=== PATIENT | male | born 1945 | race Caucasian/White ===

== ENCOUNTER 2016-10-21 04:21 | Inpatient (IN) | payer MEDICARE, BC ==
--- NOTE | ~2016-10-21 | HP ---
Unit #: [id number] #: [id number] Patient: NORA FORD [id number] [address] [address] [id number] I MR#: [id number] NAME: NORA FORD ROOM: [facility] Age: 70 Sex: M Admission Date: 10/21/2016 : 1945 Attending Physician: Carmen Matt M.D. HISTORY AND PHYSICAL ADDENDUM DIAGNOSTIC DATA LABORATORY: Last night's workup showed sodium 134, potassium 4.4, chloride 95, BUN 26, creatinine 1.27, lactic acid 2.9, white blood cell count 15.7, hemoglobin 15, platelets 153. Urinalysis showed 5-10 WBCs, 2+ bacteria. Strep screen negative for group B strep. Influenza rapid negative. Dictated by Brit Washington/yrn TD: 10/21/2016 11:05 JOB #: [id number] HISTORY AND PHYSICAL Page 1 of 1 X X HISTORY AND PHYSICAL
--- NOTE | ~2016-10-21 | US84 ---
[id number] [facility] [address] [place], [place] [address] [id number] I MR#: [id number] Acc #: [id number] NAME: NORA FORD : 1945 SEX: M STUDY DATE/TIME: 10/22/2016 18:11 UNIT: C4 ROOM: [facility] STUDY DESCRIPTION: US LE Veins Complete Sotero Stdy Attending Physician: Cristino Vigil M.D. Ordering Physician: Cristino Vigil M.D. MEDICAL IMAGING REPORT This report is preliminary unless electronic signature is present EXAM Bilateral lower extremity venous Doppler HISTORY 70-year-old male bilateral lower extremity swelling times 6 months. History of shortness of air x2 months. Patient diabetic with neuropathy. FINDINGS 2-D and Doppler evaluation of the lower extremity demonstrates normal flow and compressibility of the major veins of both lower extremities. No intraluminal thrombus identified. Normal respiratory variation. Normal augmentation. There is an enlarged hyperemic left inguinal lymph node measuring up to 4 cm. This may be reactive due to a left groin cellulitis. By report the patient has redness and visualized infection in the left groin. IMPRESSION 1. No sonographic evidence of DVT or superficial venous thrombosis. 2. Enlarged hypervascular left inguinal lymph node may represent a reactive lymph node. By report the patient has evidence of a left groin pain cellulitis and/or infection. Dictated by... Rosy Menjivar M.D. THIS IS AN ELECTRONICALLY VERIFIED REPORT Rosy Menjivar M.D. at 10/23/2016 8:09 PM ROSS/giorgio TD: 10/23/2016 05:41 JOB #: [id number] MEDICAL IMAGING REPORT Page 1 of 1 COPY
--- NOTE | ~2016-10-21 | CO ---
Unit #: [id number] #: [id number] Patient: NORA FORD [id number] [place] [address] [facility]. [place], [place] [address] [id number] I MR#: [id number] NAME: NORA FORD ROOM: 470 Age: 70 Sex: M Admission Date: 10/21/2016 : 1945 Attending Physician: Cristino Vigil M.D. CONSULTATION REPORT HISTORY OF PRESENT ILLNESS This is a 70-year-old white male, who is known to Dr. Nolasco, who has a history of hypertension, hyperlipidemia, and chronic dependent edema. The patient had an echocardiogram in 2014, which showed normal left ventricular ejection fraction with diastolic dysfunction. He denies a history of any cardiac testing with heart catheterization or stress test. The patient is admitted to [facility] with fever and chills. While there, the patient's blood pressure dropped down as lower as 40 systolically. He was treated with IV fluids and subsequently transferred to the intensive care unit at [facility]. His blood pressure improved with IV fluids. 2D echocardiogram was obtained, which found the patient to have an ejection fraction of 30% to 35%. No suspected endocarditis, but there was no evidence of vegetation. Blood cultures at this facility was normal, however, there was gram-positive cocci in chain and one of 2 blood cultures at [facility]. The patient has no symptoms of angina. He has dyspnea when he walks on elevation. No dyspnea on walking on a flat surface. He has persistent lower extremity edema where the left lower extremity is worse than the right. He denies paroxysmal nocturnal dyspnea, orthopnea, or palpitations. There was elevation of creatinine of 1.9 on admission with questionable chronic kidney disease. Upon further questioning, the patient states he has several loose teeth. He has not seen a dentist in years. He reports no toothaches. His white count is elevated at 20.5 on admission, but he has been started on antibiotics intravenously. PAST MEDICAL HISTORY 1. 2D echocardiogram on 11/15/2014 shows ejection fraction of 60% to 65% with impaired left ventricular relaxation. Done at [facility] office. 2. 2D echocardiogram on 10/21/2016 at this facility shows ejection fraction of 30% to 35% with trace tricuspid regurgitation. 3. Hypertension. 4. Hyperlipidemia. 5. Chronic lower extremity edema. 6. Diabetes mellitus, type 2. 7. Obstructive sleep apnea, wears CPAP. 8. Morbid obesity. 9. GERD. 10. Poor dentition. 11. Former smoker. PAST SURGICAL HISTORY Unit #: [id number] #: [id number] Patient: NORA FORD 1. Circumcision. 2. Appendectomy. 3. Ureteroscopy. 4. 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 SOCIAL HISTORY The patient lives in [place], [place]. He is and not employed. He quit smoking approximately 5 to 6 years ago, but previously smoked heavily of 2 packs of cigarettes daily. Quit drinking heavily several years ago. Denies illicit drug use. FAMILY HISTORY Mother from a myocardial infarction at age 59. ALLERGIES Amoxicillin and Celebrex. HOME MEDICATIONS Lipitor 40 mg q.h.s., carvedilol 6.25 mg b.i.d., methocarbamol 500 mg q.6 hours p.r.n., Neurontin 600 mg t.i.d., metformin 500 mg b.i.d., Protonix 40 mg daily, Cozaar 100 mg daily. REVIEW OF SYSTEMS CONSTITUTIONAL: Positive for recent fever and chills. Has no weight gain or weight loss. HEENT: No headache. No vision changes. No difficulty with swallowing. Negative for dizziness. CARDIOVASCULAR: Has no symptoms of angina. Denies palpitations. No paroxysmal nocturnal dyspnea or orthopnea. Denies syncope or near syncope. RESPIRATORY: Positive for dyspnea on extreme exertion. No cough or hemoptysis. GASTROINTESTINAL: Denies abdominal pain, nausea, or vomiting. No constipation. No melena. EXTREMITIES: Positive for bilateral lower extremities. Right lower extremity with 1+ edema. Left lower extremity with 3+ edema. PHYSICAL EXAMINATION VITAL SIGNS: Blood pressure 116/52, heart rate 83, temperature 97.9. BMI 50. GENERAL: This is a morbidly obese 70-year-old pleasant white male, who is in no acute respiratory distress. NEUROLOGIC: He is awake, alert, and oriented. There are no focal weaknesses. NECK: Trachea is midline. No thyromegaly or lymphadenopathy. No jugular venous distention. HEART: S1 and S2. Heart sounds are normal. No murmurs. No rubs or clicks. Regular rate and rhythm. LUNGS: Diminished breath sounds throughout without rales, rhonchi, or wheezing. ABDOMEN: Soft and obese with bowel sounds are present. EXTREMITIES: With 3+ left lower extremity edema. 1+ in the right lower extremity. DIAGNOSTIC STUDIES LABORATORY RESULTS: Glucose 137, BUN 28, creatinine 1.6, sodium 137, potassium 4.4. Troponin less than 0.03. CK total 86, hemoglobin A1c 6.2. Lactic acid 1.8. Cholesterol 92, triglycerides 75, LDL 33, HDL 44. White count 14.5, hemoglobin 13.3, hematocrit 40.6, platelet count 113. Unit #: [id number] #: [id number] Patient: NORA FORD IMAGING STUDIES: Chest x-ray shows stable cardiomegaly. CARDIOVASCULAR STUDIES: EKG, normal sinus rhythm with rate of 71 beats per minute, otherwise normal. IMPRESSION 1. Sepsis. 2. Cardiomyopathy with ejection fraction of 30% to 35%. 3. Hypotension. 4. History of hypertension. 5. Hyperlipidemia. 6. Diabetes mellitus type 2. 7. Obstructive sleep apnea. 8. Lower extremity edema, rule out deep vein thrombosis. PLAN 1. Cardiology was consulted for cardiomyopathy. The patient's ejection fraction is low compared to the previous in 2015. The patient is already on ARB and beta-darren. 2. Because of hypotension, we will decrease the dose of losartan and carvedilol. 3. No acute heart failure noted on examination. 4. Follow up with Dr. Nolasco at discharge. Thank you for allowing us to assist with this patient's care. Dictated by... Daily Doll/camille TD: 10/23/2016 01:10 JOB #: [id number] CC: Dax Nolasco M.D. CONSULTATION REPORT Page 1 of 1 X Prasanna Quinones APRN X CONSULTATION REPORT
--- NOTE | ~2016-10-21 | BMI ---
[facility] Nutrition Therapy DATE: 10/22/16 Patient: NORA LRJAMALLEONARDO Physician: [place] Address: [address] [facility] Room/Bed: [address] [place] [address], Zip: [place] [phone] Admit Date: 10/21/16 Date of : [birth year] Height: 5 11 Weight: 359 163 HIGH BMI NOTE: DX: 70 y/o male admitted for hypotension ANTHROPOMETRICS: Ht: 5'11" Wt: 163.2 kg (359#) BMI: 50.2 DIET: Consistent carb INTERVENTION: Consistent carb RECOMMENDATIONS: 1. Continue consistent carb diet to promote gradual weight loss towards healthy BMI RD will f/u per protocol. Respectfully, BULMARO VIRK, Marine Equipment Design Engineer Carmen Ruiz RD, LD Food and Nutritional Services [facility] cc: client file
--- NOTE | ~2016-10-21 | EKG ---
PATIENT: NORA FORD UNIT #: [id number] Ventricular Rate: 71 BPM Atrial Rate: 71 BPM P-R Interval: 176 ms QRS Duration: 86 ms Q-T Interval: 378 ms QTC Calculation(Bezet): 410 ms P Volborg: 67 degrees Calculated R Volborg: 29 degrees Calculated T Volborg: 55 degrees Diagnosis Line: Normal sinus rhythm Diagnosis Line: Normal ECG Diagnosis Line: No previous ECGs available Diagnosis Line: Confirmed by PINEDA DUPONT MD ([id number]) on 10/22/2016 Diagnosis Line: 9:36:05 AM INTERPRETING MD: KIAH AQUINO
--- NOTE | ~2016-10-21 | DS ---
Unit #: [id number] #: [id number] Patient: NORA FORD [id number] [address] [address] [id number] I MR#: [id number] NAME: NORA FORD ROOM: [facility] Age: 70 Sex: M Admission Date: 10/21/2016 : 1945 Discharge Date: 10/24/2016 Attending Physician: Ant Trimble M.D. DISCHARGE SUMMARY DISCHARGE DIAGNOSES Septic shock, chronic diastolic heart failure, type 2 diabetes, acute kidney injury, morbid obesity, and dental caries. HOSPITAL COURSE The patient is a 70-year-old male, who presented to [facility] with complaints of fevers and rigors. Apparently, they had been going on for approximately 24 hours. In the ED at that facility, the patient was noted to have a blood pressure of 75/25. He received fluid bolus and was started on pressors. The patient was [facility] and admitted to the ICU. The patient improved quickly with administration of IV antibiotics. Ultimately, blood cultures have grown group B strep. Repeat blood cultures are negative at this time. The presumed source of this infection is the patient's dental caries for which he had a dental appointment and pending extractions scheduled for the time he has been in this facility. The patient's blood pressure is normal, off pressors. He has been afebrile since admission here despite presenting with a temperature of a 102. Incidentally, the patient states that this kind of presentation is unremarkable for him and that he will occasionally get these fevers and rigors, but they typically resolve with a dose of Tylenol and do not return. At this time however after they failed to improve, his took him to the emergency department. Given resolution of symptoms and no further growth in blood cultures, the patient is being discharged home. DISCHARGE MEDICATIONS Neurontin 600 mg p.o. t.i.d., metformin 500 mg p.o. b.i.d., Coreg 6.25 mg p.o. b.i.d., Lipitor 40 mg p.o. in the evening, Cozaar 100 mg p.o. daily, pantoprazole 40 mg p.o. daily, methocarbamol 500 mg p.o. q.6 hours p.r.n., Omnicef 300 mg one p.o. b.i.d. for 11 more days. DISCHARGE INSTRUCTIONS I have discussed this extensively with the patient. He should reschedule with [facility] for extraction of his teeth as planned prior to this admission. Additionally given his chronic systolic heart failure, I have recommended he follow up with his child specialist as soon as possible. Additionally, he should see his primary care provider at the end of his antibiotic course. Unit #: [id number] #: [id number] Patient: NORA FORD Dictated by... Brit Nunez/camille TD: 10/25/2016 05:43 JOB #: [id number] DISCHARGE SUMMARY Page 1 of 1 X Ant Trimble MD X DISCHARGE SUMMARY
--- NOTE | ~2016-10-21 | HP ---
Unit #: [id number] #: [id number] Patient: NORA FORD [id number] [address] [address] [id number] I MR#: [id number] NAME: NORA FORD ROOM: [facility] Age: 70 Sex: M Admission Date: 10/21/2016 : 1945 Attending Physician: Carmen Matt M.D. HISTORY AND PHYSICAL CHIEF COMPLAINT Fever and chills, hypotension. HISTORY OF PRESENTING ILLNESS The patient is a 70-year-old man with a past medical history of morbid obesity, was initially evaluated at [facility] for fever and chills which started last night. He was noted to be hypotensive. He was started on dopamine drip, he was started on IV steroids. Initiated on sepsis protocol and transferred here for further care. The patient mentions that he is having fever with chills for the last one day. Denies any sick contacts. Complains of cough with clear sputum. Denies any burning sensation passing urine, increased frequency of urination. Denies having any diarrhea, dysuria. In the outlying facility, he was hypotensive, started on pressors and transferred here. PAST MEDICAL HISTORY 1. History of diet controlled diabetes. 2. History of osteomyelitis in the left fourth toe, status post amputation. 3. He mentions he had a cardiac condition in which he could not exactly explain. Possibly, from what he describes, congestive heart failure. He also has hyperlipidemia and neuropathy, sleep apnea. ALLERGIES Includes Celebrex. HOME MEDICATIONS 1. Lipitor 40 mg daily. 2. Vitamin C. 3. Aspirin 81 mg daily. 4. Coreg 6.25 mg twice a day. 5. Gabapentin 600 mg, one tab t.i.d. 6. Glucosamine. 7. Lisinopril 20 mg daily. 8. Metformin 500 mg, one tab b.i.d. SOCIAL HISTORY He mentions his brother had lung cancer. PAST SURGICAL HISTORY 1. 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 Unit #: [id number] #: [id number] Patient: NORA FORD 2. History of appendectomy. 3. Ureteroscopy. 4. Circumcision. REVIEW OF SYSTEMS A complete review of systems was done. Negative except for what is mentioned in the HPI. PHYSICAL EXAMINATION VITAL SIGNS: Temperature 97.6, pulse rate 74, respiratory rate 20, blood pressure 159/45. GENERAL: The patient is obese, alert, oriented x3, lying in the bed, in no acute distress. HEENT: Normocephalic, atraumatic. No icterus. PERRLA. Extraocular movements intact. NECK: Supple. No JVD. HEART: S1, S2. Regular rate and rhythm. CHEST: Bilateral equal air entry, clear to auscultation. ABDOMEN: Obese, soft, nontender. EXTREMITIES: Edema in both upper and lower extremities. Looks chronic in nature with skin changes. DIAGNOSTIC STUDIES Kindly note - we do not have any labs yet. We are trying to get stat labs at this point. ASSESSMENT AND PLAN 1. Sepsis with shock: Currently, he is on dopamine drip. The blood pressure is stabilizing. Will down titrate the dopamine drug and also taper his IV fluids as he also has a history of heart failure and he does have chronic edema. I don't want him to go get volume overloaded at this point. 2. History of diabetes mellitus: He is on metformin. I will hold it for now. Keep him on Accu-Cheks q. a.c. and q. h.s., insulin sliding scale. Keep him on diabetic healthy heart diet. 3. History of heart failure: Will check a 2D echo with Doppler. Will resume his blood pressure medications once his blood pressure is stable enough. 4. History of osteomyelitis in the lower extremities: Wounds look clean. Will monitor. 5. DVT precautions. 6. Further recommendations per hospital course. Dictated by Brit Washington TD: 10/21/2016 11:32 JOB #: [id number] Unit #: [id number] #: [id number] Patient: NORA FORD HISTORY AND PHYSICAL Page 1 of 1 X X HISTORY AND PHYSICAL
--- NOTE | ~2016-10-21 | CO ---
Unit #: [id number] #: [id number] Patient: NORA FORD [id number] [address] [address] [id number] I MR#: [id number] NAME: NORA FORD ROOM: [facility] Age: 70 Sex: M Admission Date: 10/21/2016 : 1945 Attending Physician: Cristino Vigil M.D. Consultation Date: 10/21/2016 CONSULTATION REPORT REASON FOR CONSULTATION Critical care management. CHIEF COMPLAINT Fever and hypertension. HISTORY OF PRESENT ILLNESS A 70-year-old male with a past medical history of morbid obesity, likely obstructive sleep apnea, diabetes mellitus, possible coronary artery disease, and dyslipidemia, presents with the complaint of fever and cough with increasing sputum production. He was found to be hypertensive and started on pressor and transferred here. I am seeing the patient at the bedside. He is complaining of some cough. He denies any nausea, vomiting, or diarrhea. PAST MEDICAL HISTORY As described above. PAST SURGICAL HISTORY 1. Amputation of the fourth toe of the foot on both sides. 2. Appendectomy. 3. Ureteroscopy. 4. Circumcision. ALLERGIES CELEBREX. HOME MEDICATIONS 1. Lipitor. 2. Vitamin C. 3. Aspirin. 4. Coreg. 5. Neurontin. 6. Glucosamine. 7. Lisinopril. 8. Metformin. SOCIAL HISTORY Lung cancer. PHYSICAL EXAMINATION VITAL SIGNS: Temperature 98, pulse 87, respirations 12, and blood pressure 130/70. NEUROLOGICAL: Awake, alert, and oriented, with no neurological deficits. Unit #: [id number] #: [id number] Patient: NORA FORD HEENT: Pupils equal, round, and reactive to light and accommodation. Extraocular movements are intact. NECK: Supple. No JVD. CHEST: Bilateral air entry, bilateral mild rhonchi. GASTROINTESTINAL: Nontender and soft. Bowel sounds positive. EXTREMITIES: No edema. SKIN: No rashes and no ulcers. LYMPHATICS: No lymphadenopathy. DIAGNOSTIC STUDIES LABORATORY: Creatinine is 1.9, BUN 29, and potassium is 4.8. Lactic acid is 1.8. White count is 20, hemoglobin 13, hematocrit 42, and platelet count is 134,000. IMAGING: Pending. ASSESSMENT 1. Septic shock. 2. History of heart failure. 3. History of osteomyelitis. PLAN Admit the patient. Will review the imaging. Continue oxygen and bronchodilator. Will order noncontrast CT of the chest as well. Follow cultures. Broad spectrum IV antibiotics, wean pressors, and stress-dose steroid. Please see orders for detailed plans. I would like to thank Dr. Vigil for his kind consideration to involve me in taking care of this patient. Will follow patient along with you very closely. Dictated by... Brit Boyer TD: 10/21/2016 21:40 JOB #: [id number] CONSULTATION REPORT Page 1 of 1 X Mildred Mason MD X CONSULTATION REPORT
--- NOTE | ~2016-10-21 | CR63 ---
[facility] A Service of [facility] RADIOLOGY TEXT RESULTS PATIENT: NORA FORD LOCATION: [facility] 470-01 : [birth year] UNIT #: [id number] AGE: [address]: Cristino Vigil MD SEX: M ORDER DR: [id number] [facility] [address] [facility]. [place], [place] [address] [id number] MR#: [id number] Acc #: [id number] NAME: NORA FORD : 1945 SEX: M STUDY DATE/TIME: 10/22/2016 12:10 UNIT: [facility] ROOM: [facility] STUDY DESCRIPTION: CR Chest 2 View Attending Physician: Cristino Vigil M.D. Ordering Physician: Mildred Mason M.D. MEDICAL IMAGING REPORT This report is preliminary unless electronic signature is present EXAM Chest 2 views, 10/22/2016 12:10 hours HISTORY 70-year-old man with 3-day history of shortness of air, fever and chills. COMPARISON Chest CT 10/21/2016 and chest x-ray 10/20/2016 FINDINGS Portable upright chest excludes the extreme lung apices. There is mild cardiomegaly, tortuous aorta unchanged. The lungs are well expanded. There is no definite acute pulmonary density or pleural effusion. A small density seen in the lingula and the lung bases on yesterday's CT scan are not detected on plain film. IMPRESSION The lungs are well inflated with no definite acute pulmonary densities. The vague density seen in the lingula independently at the lung bases on CT 10/21/2016 are not detected on plain film. No effusions are seen. Stable mild cardiomegaly. Dictated by... Nancy Harper M.D. THIS IS AN ELECTRONICALLY VERIFIED REPORT Nancy Harper M.D. at 10/22/2016 1:56 PM Selvin TD: 10/22/2016 13:11 JOB #: [id number] MEDICAL IMAGING REPORT [facility] A Service of [facility] RADIOLOGY TEXT RESULTS PATIENT: NORA FORD LOCATION: [place] [address]- : [birth year] UNIT #: [id number] AGE: [address]: Cristino Vigil MD SEX: M ORDER DR: Page 1 of 1 COPY
[2016-10-21] MEDS ORDERED: LIPITOR40 MG PO (10:45)
[2016-10-21] MEDS ORDERED: COREG6.25 MG PO (10:46)
[2016-10-21] MEDS ORDERED: NEURONTIN600 MG PO (10:47)
[2016-10-21] MEDS ORDERED: METHOCARBAMOL500 MG PO (10:47)
[2016-10-21] MEDS ORDERED: METFORMIN HCL500 M1 PO (10:47)
[2016-10-21] MEDS ORDERED: PANTOPRAZOLE SO40 MG PO (10:48)
[2016-10-21] MEDS ORDERED: COZAAR100 MG PO (10:48)
[2016-10-21 11:22] LABS: BASOPHIL% 0.1 % (0-2.5); HEMATOCRIT 42.9 % (38.0-50.0); HEMOGLOBIN 13.7 gm/dL (13.0-16.0); LYMPHOCYTE# 0.3 X10e3 (1.0-3.5); LYMPHOCYTE% 1.7 % (17.0-45.0); MEAN CELL VOLUME 97.7 FL (83-96); MEAN CORPUSCULAR HEMOGLOBIN 31.2 PG (28-34); MEAN PLATELET VOLUME 8.8 FL (6.5-11.5); MONOCYTE# 0.2 X10e3 (0-1.0); MONOCYTE% 1.2 % (3.0-12.0); NEUTROPHIL# 19.9 X10e3 (1.5-7.1); PLATELET COUNT 134 X10e3 (140-420); RED BLOOD COUNT 4.39 X10e (3.90-5.60); RED CELL DISTRIBUTION WIDTH 14.8 % (11.0-15.5); WHITE BLOOD COUNT 20.5 X10e3 (4.0-10.5)
[2016-10-21 11:26] LABS: DIFF IND YES
[2016-10-21 11:28] LABS: INR 1.1; PARTIAL THROMBOPLASTIN TIME 31.9 SECONDS (23.5-31.3); PROTHROMBIN TIME (PATIENT) 11.4 SECONDS (9.6-11.5)
[2016-10-21 11:53] LABS: ALBUMIN SERUM 3.1 g/dL (3.5-5.0); BILIRUBIN,TOTAL 0.8 mg/dL (0.2-2.0); BUN/CREATININE RATIO 15.26; CALCIUM SERUM 7.7 mg/dL (8.4-10.2); CREATININE SERUM 1.9 mg/dL (0.6-1.4); GLOM FILT RATE Estimated 34.9 mL/min (>60); POTASSIUM 4.8 mmol/L (3.5-5.1)
[2016-10-21 11:59] LABS: ANISOCYTOSIS SL; RBC NORMAL YES
[2016-10-21 12:00] LABS: PLATELET ESTIMATE DECREASED (NORMAL)
[2016-10-21 12:13] LABS: %MB 3.4 % (0.0-4.0); MB 2.9 ng/ml
[2016-10-21 12:38] LABS: CHOLESTEROL 92 mg/dL (0-200); HDL CHOLESTEROL 44 mg/dL (29-75); LDL CHOLESTEROL 33 mg/dL (-130); LDL/HDL RATIO 1 RATIO (0-4); TRIGLYCERIDES 75 mg/dL (10-160)
[2016-10-22 04:14] LABS: BASOPHIL% 0.1 % (0-2.5); HEMATOCRIT 40.6 % (38.0-50.0); HEMOGLOBIN 13.3 gm/dL (13.0-16.0); LYMPHOCYTE# 0.5 X10e3 (1.0-3.5); LYMPHOCYTE% 3.4 % (17.0-45.0); MEAN CELL VOLUME 97.2 FL (83-96); MEAN CORPUSCULAR HEMOGLOBIN 31.9 PG (28-34); MEAN CORPUSCULAR HGB CONC 32.9 g/dL (30-36); MEAN PLATELET VOLUME 8.7 FL (6.5-11.5); MONOCYTE# 0.5 X10e3 (0-1.0); MONOCYTE% 3.8 % (3.0-12.0); NEUTROPHIL# 13.4 X10e3 (1.5-7.1); NEUTROPHIL% 92.7 % (40-75); PLATELET COUNT 113 X10e3 (140-420); RED BLOOD COUNT 4.17 X10e (3.90-5.60); RED CELL DISTRIBUTION WIDTH 14.8 % (11.0-15.5); WHITE BLOOD COUNT 14.5 X10e3 (4.0-10.5)
[2016-10-22 04:16] LABS: DIFF IND NO
[2016-10-22 04:48] LABS: ALBUMIN SERUM 2.9 g/dL (3.5-5.0); BILIRUBIN,TOTAL 0.8 mg/dL (0.2-2.0); BUN/CREATININE RATIO 17.5; CALCIUM SERUM 7.4 mg/dL (8.4-10.2); CREATININE SERUM 1.6 mg/dL (0.6-1.4); POTASSIUM 4.4 mmol/L (3.5-5.1); PROTEIN TOTAL SERUM 6.5 g/dL (6.0-8.3)
[2016-10-23 03:34] LABS: BASOPHIL% 0.2 % (0-2.5); DIFF IND NO; EOSINOPHIL# 0.1 X10e3 (0-0.7); EOSINOPHIL% 1.2 % (0.0-7.0); HEMATOCRIT 40.1 % (38.0-50.0); HEMOGLOBIN 13.1 gm/dL (13.0-16.0); LYMPHOCYTE# 0.7 X10e3 (1.0-3.5); LYMPHOCYTE% 6.5 % (17.0-45.0); MEAN CORPUSCULAR HEMOGLOBIN 31.6 PG (28-34); MEAN CORPUSCULAR HGB CONC 32.6 g/dL (30-36); MONOCYTE# 0.5 X10e3 (0-1.0); MONOCYTE% 4.3 % (3.0-12.0); NEUTROPHIL# 9.4 X10e3 (1.5-7.1); NEUTROPHIL% 87.8 % (40-75); PLATELET COUNT 103 X10e3 (140-420); RED BLOOD COUNT 4.13 X10e (3.90-5.60); RED CELL DISTRIBUTION WIDTH 14.8 % (11.0-15.5); WHITE BLOOD COUNT 10.7 X10e3 (4.0-10.5)
[2016-10-23 03:53] LABS: ALBUMIN SERUM 2.9 g/dL (3.5-5.0); BILIRUBIN,TOTAL 0.7 mg/dL (0.2-2.0); BUN/CREATININE RATIO 21.66; CALCIUM SERUM 7.8 mg/dL (8.4-10.2); CREATININE SERUM 1.2 mg/dL (0.6-1.4); GLOM FILT RATE Estimated 60.9 mL/min (>60); POTASSIUM 4.5 mmol/L (3.5-5.1); PROTEIN TOTAL SERUM 6.9 g/dL (6.0-8.3)
[2016-10-24 02:32] LABS: HEMATOCRIT 40.1 % (38.0-50.0); HEMOGLOBIN 13.1 gm/dL (13.0-16.0); MEAN CELL VOLUME 96.6 FL (83-96); MEAN CORPUSCULAR HEMOGLOBIN 31.6 PG (28-34); MEAN CORPUSCULAR HGB CONC 32.7 g/dL (30-36); MEAN PLATELET VOLUME 9.1 FL (6.5-11.5); RED BLOOD COUNT 4.15 X10e (3.90-5.60); RED CELL DISTRIBUTION WIDTH 14.4 % (11.0-15.5); WHITE BLOOD COUNT 7.9 X10e3 (4.0-10.5)
[2016-10-24 02:56] LABS: BUN/CREATININE RATIO 18.33; CREATININE SERUM 1.2 mg/dL (0.6-1.4); GLOM FILT RATE Estimated 60.9 mL/min (>60); POTASSIUM 4.4 mmol/L (3.5-5.1)
[2016-10-24] MEDS ORDERED: OMNICEF300 MG PO (15:59)
== END 2016-10-24 16:55 | disposition home or self-care (01) | DRG 871 ==
LOC: CEDOF 04:21 → CICCU2 08:50 → C4C 20:00
PROVIDERS: Internal Medicine
PROC: B24BZZZ Ultrasonography of Heart with Aorta (ICD-10-PCS; principal; 2016-10-21)
DX: A40.1 Sepsis due to streptococcus, group B (principal); R65.21 Severe sepsis with septic shock; N17.9 Acute kidney failure, unspecified; Z68.43 Body mass index [BMI] 50.0-59.9, adult; I11.0 Hypertensive heart disease with heart failure; I50.32 Chronic diastolic (congestive) heart failure; E66.01 Morbid (severe) obesity due to excess calories; I42.9 Cardiomyopathy, unspecified; K02.9 Dental caries, unspecified; E11.9 Type 2 diabetes mellitus without complications; Z79.84 Long term (current) use of oral hypoglycemic drugs; E78.5 Hyperlipidemia, unspecified; G47.33 Obstructive sleep apnea (adult) (pediatric); K21.9 Gastro-esophageal reflux disease without esophagitis; R60.0 Localized edema; Z88.1 Allergy status to other antibiotic agents; Z88.8 Allergy status to other drugs, medicaments and biological substances; Z89.422 Acquired absence of other left toe(s); Z89.421 Acquired absence of other right toe(s)
CPT/HCPCS: 71020; 80048; 80053; 80061; 82550; 82553; 82947; 83036; 83605; 84484; 85025; 85027; 85610; 85730; 87040; 87086; 93005; 93306; 93970; 94640; 94760; J0696; J1650; J1815; J1956